=== PATIENT | female | born 1970 | race Caucasian/White ===

== ENCOUNTER → 2017-10-22 | Outpatient (CLI) | payer OTHER ==
[~2017-10-22] MED LIST: DUL20 PO; DULO60CA7 PO; FLUV100T21 PO; FLUV25TA13 PO; HYDR-2966 PO; HYDR12.561 PO; LEVO1TAB16 PO; LEVO1TAB75 PO; LOSA100T69 PO; LOSA25TA52 PO; METO25TA23 PO; QUET50TA PO
--- NOTE | 2017-10-22 11:46 | EKG ---
[place] [facility] [place] NAME: LUDWIN MONTGOMERY : [id number] MR: [id number] V: [id number] EXAM DATE: ORDERING PHYSICIAN: GUDELIA HICKEY TECHNOLOGIST: JOHN Roman Reason : PREOP Blood Pressure : / mmHG Vent. Rate : 076 BPM Atrial Rate : 076 BPM P-R Int : 116 ms QRS Dur : 076 ms QT Int : 380 ms P-R-T Axes : 056 036 043 degrees QTc Int : 427 ms Normal sinus rhythm Normal ECG No previous ECGs available Confirmed by ALESHIA PITTS ([id number]) on 10/22/2017 8:16:13 PM Referred By: Confirmed By:ALESHIA PITTS
== END ==
LOC: RESP 11:30
PROVIDERS: ATTEND Obstetrics & Gynecology
DX: Z01.810 Encounter for preprocedural cardiovascular examination (principal)
CPT/HCPCS: 93005

== ENCOUNTER 2017-10-24 04:06 | Day surgery (SDC) | payer OTHER ==
[2017-10-24] VITALS (7 sets, daily range): BP systolic 99–128; BP diastolic 78–82
[~2017-10-24] VITALS: Ht 151.1 cm; Wt 69.9 kg
[2017-10-24] MEDS ORDERED: NORMOSOL R SOLN(*) 1000 ML BAG 1,000 ML IV PRN (06:30)
[2017-10-24] MEDS ORDERED: ceFAZolin(*) 1 GM VIAL 1 GM in NS(*) 0.9% 100 ML ADDVANT BAG 100 ML IVPB ONE (06:30)
[2017-10-24] MEDS ORDERED: FAMOTIDINE 20 MG TAB PO ONE (06:30)
[2017-10-24] MEDS ORDERED: MIDAZOLAM 2 MG/2 ML VIAL IVP PRN (06:30)
[2017-10-24] MEDS ORDERED: LIDOCAINE/SOD BICARB 8.4% SYR ID ONE (06:30)
[2017-10-24] MEDS ORDERED: PROPOFOL EMUL(*) 10MG/ML 20 ML 40 ML ONE (07:05)
[2017-10-24] MEDS ORDERED: LIDOCAINE MPF 1% 5 ML VIAL ONE (07:05)
[2017-10-24] MEDS ORDERED: DEXAMETHASONE SOD PHOS 10MG/ML ONE (07:06)
[2017-10-24] MEDS ORDERED: ONDANSETRON 4 MG/2 ML VIAL ONE (07:06)
[2017-10-24] MEDS ORDERED: fentaNYL CITR 100 MCG/2 ML AMP ONE ×2 (07:10→08:29)
[2017-10-24] MEDS ORDERED: KETAMINE HCL-NS 50 MG/5 ML SYR ONE (07:11)
[2017-10-24] MEDS ORDERED: ROPIVACAINE 0.2% 20 ML VIAL ONE (07:18)
[2017-10-24] MEDS ORDERED: LOR5/325 PO (07:31)
[2017-10-24] MEDS ORDERED: IBUP800T37 PO (07:31)
[2017-10-24] MEDS ORDERED: BUPIV/EPI 0.25% 1:200,000 50ML INFIL ONE (07:33)
[2017-10-24] MEDS ORDERED: LR(*) 1000 ML BAG 1,000 ML IV ONE (08:26)
--- NOTE | 2017-10-24 08:28 | Post Operative Note ---
Operative Note - CLINICAL CYTOPATHOLOGIST Operative Day Date: Oct 24, 2017 Time: 08:27 Physicians Surgeon: Liz Anesthesia: Low, General LMA Diagnosis Pre-Op Diagnosis: Left Bartholin gland abscess Post-Op Diagnosis: Same Procedure Findings: 5x6cm Bartholin abscess on left Procedure(s): Left bartholin gland excision and marsupialization Specimen Removed:(Maybe N/A): Left bartholin gland Fluids Fluids: IVF: 400cc UOP: 20cc Estimated Blood Loss: 20cc GUDELIA HICKEY MD Oct 24, 2017 08:28
[2017-10-24] MEDS ORDERED: METOCLOPRAMIDE 10 MG/2 ML SDV IVP PRN (08:30)
[2017-10-24] MEDS ORDERED: APAP/HYDROCODONE 325/5 TAB ONE (08:59)
[2017-10-24] MEDS ORDERED: IBUPROFEN 800 MG TAB PO SCH (09:00)
--- NOTE | 2017-10-24 09:14 | OPERATIVE REPORT 1 ---
EVENT DATE: October 24, 2017 SURGEON: Verenice Hill MD ANESTHESIOLOGIST: Will Low MD ANESTHESIA: General LMA. PREOPERATIVE DIAGNOSIS Recurrent left Bartholin gland abscess. POSTOPERATIVE DIAGNOSIS Recurrent left Bartholin gland abscess. FINDINGS An approximately 5x6 cm Bartholin gland abscess on the left. PROCEDURE PERFORMED Left Bartholin gland excision and marsupialization. SPECIMENS Left Bartholin gland. IV FLUIDS 400 cc. URINE OUTPUT 20 cc. ESTIMATED BLOOD LOSS 20 cc. INDICATIONS FOR PROCEDURE This patient is a 47-year-old, G1, P0 who presented for a recurring left Bartholin gland cyst. After discussing the management options including expectant I and D or excision, she elects for complete excision. We did discuss the option of proceeding with a [employer] oncologist. However, she prefers to stay in [place] for this procedure. Please see History and Physical for full details. She was admitted for above-said procedure. DESCRIPTION OF PROCEDURE The patient was properly identified and taken to the operating room. She was placed in the dorsal lithotomy position and prepped and draped in the usual fashion for a vaginal surgery. The left Bartholin gland abscess was noted to be significantly increased from the prior evaluation and was now 5x6 cm and fluctuant. An initial incision over the vaginal mucosa at the vaginal introitus was made approximately 3 cm. The abscess did rupture at this time and abundant purulent material was removed. At this time, the cyst wall was able to be grasped with an Allis clamp as well as retraction of the vulvar tissue. The left Bartholin gland was then able to be dissected away using Mcfarland scissors on either side followed by the deep aspect of the cyst. Once the entire cyst wall was completely dissected away from the underlying vaginal tissue, the gland was excised and sent to pathology. At this time, the bed of the excision was made hemostatic with three [id number] sutures of 0 Vicryl. Once hemostasis was assured, the marsupialization was performed, where the incision was closed circumferentially so that it would remain open. This was performed with 0 Vicryl sutures, working in a clockwise fashion. Once this was achieved, 0.25% Marcaine with epinephrine was introduced for local anesthetic. An additional suture was then needed for hemostasis. Hemostasis was then assured and copious irrigation of the entire bed was performed with saline. The bladder was drained of 20 cc of clear yellow urine. The procedure was then terminated. The patient tolerated the procedure well and recovered in the Post-Anesthesia Care Unit. MITALI
[2017-10-24] MEDS ORDERED: ALBUTEROL/IPRATROPIUM 3 ML NEB NEB ONE (11:25)
== END 2017-10-24 09:05 | disposition home or self-care (01) ==
LOC: OR 04:06
PROVIDERS: ATTEND Obstetrics & Gynecology
DX: N75.1 Abscess of Bartholin's gland (principal); I10 Essential (primary) hypertension; J45.909 Unspecified asthma, uncomplicated; F32.9 Major depressive disorder, single episode, unspecified; G47.30 Sleep apnea, unspecified
CPT/HCPCS: 36415; 56740; 84703; 88305; 94640; 94667; J1100; J2001; J2405; J2704; J3010; J3490; J7620; 82310; 82374; 82435; 82565; 82947; 84132; 84295; 84520; J2795